=== PATIENT | male | born 1975 | race Two or more races ===

== ENCOUNTER 2020-04-08 12:13 | Emergency (ER) | payer SELFPAY ==
[~2020-04-08] VITALS: Ht 172.7 cm; Wt 102.3 kg
[2020-04-08 12:28] VITALS: Ht 172.7 cm; Wt 102.3 kg
[2020-04-08 14:07] LABS: BASOPHILS 0.3 % (0-2); EOSINOPHILS 0 % (0-7); HEMATOCRIT 46.8 % (42.0-54.0); HEMOGLOBIN 16.1 g/dL (13.5-17.5); IMMATURE GRANULOCYTES 0.8 % (0-5); MCH 31.9 pg (26.0-34.0); MCHC 34.4 g/dL (31.0-37.0); MCV 92.7 fL (80.0-100.0); MEAN PLATELET VOLUME 9.6 fL (7.4-10.4); MONOCYTES 10.7 % (2-11); NEUTROPHILS 54.2 % (40-80); PLATELET COUNT 139 10x3/uL (130-400); RBC 5.05 10x6/uL (4.20-6.10); RDW 12.3 % (11.5-14.5); WBC 3.7 10x3/uL (4.8-10.8)
[2020-04-08 14:18] LABS: CALCIUM 8.8 mg/dL (8.5-10.1); CREATININE - SERUM 1.4 mg/dL (0.6-1.3)
[2020-04-08 14:23] LABS: BILIRUBIN - TOTAL 0.48 mg/dL (0.2-1.3)
[2020-04-08] MEDS ORDERED: DECADRON4 MG PO (15:57)
[2020-04-08] MEDS ORDERED: ZPAK PO (15:57)
[2020-04-08 16:31] VITALS: BP 134/83
== END 2020-04-08 16:33 | disposition home or self-care (01) ==
LOC: D.ER 12:13
PROVIDERS: Family Medicine
DX: J06.9 Acute upper respiratory infection, unspecified (principal)